=== PATIENT | male | born 2005 | race Hispanic/Latino ===

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

== ENCOUNTER 2025-07-12 18:31 | Emergency (ER) | payer SELFPAY ==
--- OUTSIDE RECORDS SUMMARY | 2025-07-12 18:34 | XMS REPORT | Continuity of Care Document ---
Author Name Unknown Address [address] [facility] [address] [address] [place] [address] [facility] Address [address] [facility] [address] [place] [address] Care Team Providers Care Manufacturing Project Manager Name Role Phone Adia Ibarra Primary Care Physician [phone] INA COE Attending Clinician Unavailable AGUSTIN JONES Attending Clinician Unavailable AGUSTIN JONES Attending Clinician Unavailable GEO GONZALEZ P.A. Attending Clinician Unavailab MILVIA Oconnell M.D. Attending Clinician Unavailable Problems Condition Name Condition Details Condition Category Status Onset Date Resolution Date Last Treatment Date Treating Clinician Comments Source Pain of right femur Pain of right femur Problem Active [facility] Allergies, Adverse Reactions, Alerts Allergy Name Allergy Type Status Severity Reaction(s) Onset Date Inactive Date Treating Clinician Comments Source NO KNOWN ALLERGIE S Drug Class Active [facility] Social History Social Habit Start Date Stop Date Quantity Comments Source Sexual orientation U [facility] Sex assigned at 2005 00:00:00 2005 00:00:00 [facility] Smoking Status Start Date Stop Date Source Tobacco smoking consumption unknown [facility] Medications Ordered Medication Name Filled Medication Name Start Date Stop Date Current Medication? Ordering Clinician Indication Dosage Frequency Signature (SIG) Comments Components Source fluorescein (FUL-ROMARIO) ophthalmic strip 1 Strip 04-26 23:15: 00 04-26 22:34 :00 No 1{strip } 1 Strip, Right Eye, ONCE, 1 dose, On Thu04/26/24 at 1815, Routine [facility] tetracaine (PONTOCAINE ) 0.5 % ophthalmic drops 1 Drop 04-26 23:15: 00 04-26 22:35 :00 No 1[drp] 1 Drop, Right Eye, ONCE, 1 dose, On Thu04/26/24 at 1815, Routine [facility] erythromyci n 5 mg/gram (0.5 %) ophthalmic ointment 04-26 00:00: 00 05-02 04:59 :00 No [id number] .5[in_u s] Place 0.5 Inches in right eye in the morning and 0.5 Inches in the evening. Do all this for 5 days. Continue until you follow up with eye doctor. [facility] erythromyci n (ILOTYCIN) 5 mg/gram (0.5 %) ophthalmic ointment 0.5 Inch 03-30 09:15: 00 03-30 08:23 :00 No .5[in_u s] 0.5 Inch, Both Eyes, ONCE, 1 dose, On Thu03/30/24 at 0415, Routine [facility] Bromfed DM 2 mg-30 mg-10 mg/5 mL oral syrup 02-10 00:00: 00 Yes 10mg/5 mL Alejandro Hawkins Vital Signs Vital Name Observation Time Observation Value Comments S ource Systolic blood pressure 2024-04-26 22:07:00 110 mm[Hg] [facility] Diastolic blood pressure 2024-04-26 22:07:00 73 mm[Hg] [facility] Heart rate 2024-04-26 22:07:00 102 /min [facility] Body temperature 2024-04-26 22:07:00 37.22 Fern [facility] Respiratory rate 2024-04-26 22:07:00 16 /min [facility] Body height 2024-04-26 22:07:00 172.7 cm [facility] Body weight 2024-04-26 22:07:00 58.968 kg [facility] BMI 2024-04-26 22:07:00 19.77 kg/m2 [facility] Oxygen saturation in Arterial blood by Pulse oximetry 2024-04-26 22:07:00 99 /min [facility] Systolic blood pressure 2024-03-30 07:29:35 112 mm[Hg] [facility] Diastolic blood pressure 2024-03-30 07:29:35 84 mm[Hg] [facility] Heart rate 2024-03-30 07:29:35 71 /min [facility] Body temperature 2024-03-30 07:29:35 36.78 Fern [facility] Respiratory rate 2024-03-30 07:29:35 17 /min [facility] BMI 2024-03-30 07:25:00 20.98 kg/m2 [facility] Body mass index (BMI) [Percentile] Per age and sex 2024-03-30 07:25:00 29.07 % [facility] Oxygen saturation in Arterial blood by Pulse oximetry 2024-03-30 07:25:00 99 /min [facility] Body height 2024-03-30 07:25:00 167.6 cm [facility] Body weight 2024-03-30 07:25:00 58.968 kg [facility] Weight Measured 2024-02-11 16:25:00 150.00 pounds Alejandro Hawkins Height Measured 2024-02-11 16:25:00 66.54 inches Alejandro Mayer [facility] Body Temperature 2024-02-11 16:25:00 97.80 degrees Alejandro Mayer Ross Heart Rate 2024-02-11 16:25:00 77.00 /min Divya en F Ross Respiratory Rate 2024-02-11 16:25:00 18.00 /min Alejandro F Ross BP Systolic 2024-02-11 16:25:00 109 mm[Hg] Step hen F Ross BP Diastolic 2024-02-11 16:25:00 67 mm[Hg] Smooth phen F Ross BP Systolic 2022-12-15 10:45:00 120 mm[Hg] Step hen F Ross BP Diastolic 2022-12-15 10:45:00 80 mm[Hg] Smooth phen F Ross Weight Measured 2022-12-15 10:45:00 145.80 pounds Alejandro Hawkins Height Measured 2022-12-15 10:45:00 66.54 inches Alejandro Hawkins Body Temperature 2022-12-15 10:45:00 98.30 degrees Alejandro F Ross Heart Rate 2022-12-15 10:45:00 79.00 /min Divya en F Ross Respiratory Rate 2022-12-15 10:45:00 Alejandro F Ross BP Systolic 2022-11-03 10:58:00 119 mm[Hg] Step hen F Ross BP Diastolic 2022-11-03 10:58:00 76 mm[Hg] Smooth phen F Ross Weight Measured 2022-11-03 10:58:00 142.60 pounds Alejandro F Ross Height Measured 2022-11-03 10:58:00 66.54 inches Alejandro F Ross Body Temperature 2022-11-03 10:58:00 97.60 degrees Alejandro F Ross Heart Rate 2022-11-03 10:58:00 65.00 /min Divya en F Ross Respiratory Rate 2022-11-03 10:58:00 Alejandro F Ross BP Systolic 2022-10-20 08:22:00 122 mm[Hg] Step hen F Ross BP Diastolic 2022-10-20 08:22:00 76 mm[Hg] Smooth phen F Ross Weight Measured 2022-10-20 08:22:00 141.40 pounds Alejandro F Ross Height Measured 2022-10-20 08:22:00 66.50 inches Alejandro Hawkins Body Temperature 2022-10-20 08:22:00 97.40 degrees Alejandro F Ross Heart Rate 2022-10-20 08:22:00 66.00 /min Divya en F Ross Respiratory Rate 2022-10-20 08:22:00 18.00 /min Alejandro Moreno Hawkins Procedures Procedure Date / Time Performed Performing Clinicia n Source Post Op Promis 29 Survey 2020-07-10 00:00:00 [facility] Start Date/Time End Date/Time Encounter Type Admission Type Attending Clinicians Care Facility Care Department Encounter ID Source 2024-04-26 17:09:00 2024-04-26 18:39:00 Emergency X INA COE ERT [id number] [facility] 2024-04-26 17:09:00 2024-04-26 18:39:00 Ina Henson AT [facility] [id number] [facility] 2024-03-30 02:29:00 2024-03-30 03:25:00 Emergency X AGUSTIN JONES BRENT [facility] ERT [id number] [facility] 2024-03-30 02:29:00 2024-03-30 03:25:00 Emergency Agustin Jones J [facility] [id number]..[id number] [facility] 2024-02-11 16:25:00 2024-02-11 16:25:00 Outpatient [facility] [id number] Alejandro Hawkins 2024-02-11 00:00:00 2024-02-11 00:00:00 Outpatient Visit [facility] [id number] Alejandro Hawkins 2022-12-15 10:38:34 2022-12-15 10:38:34 Outpatient [facility] [id number] Alejandro Hawkins 2022-11-04 09:47:09 2022-11-04 09:47:09 Outpatient [facility] [id number] Alejandro Hawkins 2022-11-03 10:53:54 2022-11-03 10:53:54 Outpatient [facility] [id number] Alejandro Hawkins 2022-10-20 08:14:02 2022-10-20 08:14:02 Outpatient [facility] [id number] Alejandro Hawkins 2020-07-17 07:30:00 2020-07-17 07:30:00 Appointmen t; GEO GONZALEZ PGEO MUSTAFA, PDestiny [facility] Orthopedics [facility] [id number] [facility] 2020-06-21 13:00:00 2020-06-21 13:00:00 Appointmen t; MILVIA MASON M.D. MUNZ, JOHN M.D. [facility] UTP [id number] [facility] Results Test Description Test Time Test Comments Results Result Co mments Source CINDY (ANTI-NUCLEAR AB) WITH REFLEX [id number] 00:00:00* Test Item Value Reference Range Interpretation Comme nts ANTI-NUCLEAR ANTIBODIES (kristina t code = 3506) NEGATIVE CINDY PATTERN (REPORTED TITER) (test code = 56936) SEE BELOW HOMOGENEOUS (test code = 85177) NEGATIVE TITER SPECKLED (test code = 300227) NEGATIVE TITER DENSE FINE SPECKLED (test co de = 47522) NEGATIVE TITER CENTROMERE (test code = 328704) NEGATIVE TITER COARSE SPECKLED (test code = 754835) NEGATIVE TITER DISCRETE NUCLEAR DOTS (test code = 900620) NEGATIVE TITER NUCLEOLAR (test code = 457211) NEGATIVE TITER NUCLEAR MEMBRANE (test code = 725591) NEGATIVE TITER CYTO. RETICULAR (STEW) (test code = 966077) NEGATIVE COMMENTS (test code = 817980) NONE METHOD (test code = 12907) (NOTE) Alejandro Mayer AustinSEDIMENTATION [id number] 06:01:06* Test Item Value Reference Range Interpretation Comme nts SEDIMENTATION RATE (test cod e = 1017) 2 MM/HOUR 0-15 CCP [id number] 05:07:53* Test Item Value Reference Range Interpretation Comme nts CCP IgG (test code = 22162) <0.5 U/ML <3.0 INTERPRETIVE INFORMATION INTERPRETATION RESULT NEGATIVE <3.0 U/ML POSITIVE >=3.0 U/ML CBC W/AUTO DIFF WITH [id number] 04:44:36* Test Item Value Reference Range Interpretation Comme nts WBC (test code = 1001) 3.2 K/UL 3.5-11.0 L RBC (test code = 1002) 5.11 M/UL 4.50-6.10 HEMOGLOBIN (test code = 1003) 15.7 G/DL 13.5-17.0 HEMATOCRIT (test code = 1004) 46.2 % 40.0-51.0 MCV (test code = 1005) 90.4 fL 78.0-95.0 MCH (test code = 1006) 30.7 PG 24.0-33.0 MCHC (test code = 1007) 34.0 G/DL 31.0-36.0 RDW (test code = 1038) 12.9 % 11.5-15.0 NEUTROPHILS (test code = 1008) 53.5 % LYMPHOCYTES (test code = 1010) 32.7 % MONOCYTES (test code = 1011) 8.3 % EOSINOPHILS (test code = 1012) 4.3 % BASOPHILS (test code = 1013) 0.9 % IMMATURE GRANULOCYTES (test code = 1036) 0.3 % NUCLEATED RBCS (test code = 1065) 0.0 /100 WBC'S See_Comment [Automated messa ge] The system which generated this result transmitted reference range: 0.0. The reference range was not used to interpret this result as normal/abnormal. PLATELET COUNT (test code = 1015) 210 K/UL 150-450 ABSOLUTE NEUTROPHILS (test code = 1066) 1.73 K/UL 1.50-7.50 ABSOLUTE LYMPHOCYTES (test code = 1067) 1.06 K/UL 1.20-4.00 L ABSOLUTE MONOCYTES (test code = 1068) 0.27 K/UL 0.10-0.90 ABSOLUTE EOSINOPHILS (test code = 1040) 0.14 K/UL 0.00-0.50 ABSOLUTE BASOPHILS (test code = 1069) 0.03 K/UL 0.00-0.10 ABS IMMATURE GRANULOCYTES (test code = 1020) 0.01 K/UL 0.00-0.10 ABS NUCLEATED RBCS (test code = 86862) 0.00 K/UL 0.00-0.13 URIC [id number] 03:33:52* Test Item Value Reference Range Interpretation Comme nts URIC ACID (test code = 2233) 6.2 MG/DL 3.7-8.0 RHEUMATOID FACTOR, [id number] 03:33:42* Test Item Value Reference Range Interpretation Comme nts RHEUMATOID FACTOR, QUANT (te st code = 3502) <10 IU/ML <14 SEDIMENTATION [id number] 00:00:00* Test Item Value Reference Range Interpretation Comme nts SEDIMENTATION RATE (test cod e = 1017) 2 MM/HOUR Alejandro HawkinsCCP [id number] 00:00:00* Test Item Value Reference Range Interpretation Comme nts CCP IgG (test code = 27175) <0.5 U/ML Alejandro F AustinRHEUMATOID FACTOR, [id number] 00:00:00* Test Item Value Reference Range Interpretation Comme nts RHEUMATOID FACTOR, QUANT (te st code = 3502) <10 IU/ML Alejandro HawkinsCBC W/AUTO [id number] 00:00:00* Test Item Value Reference Range Interpretation Comme nts WBC (test code = 1001) 3.2 K/UL RBC (test code = 1002) 5.11 M/UL HEMOGLOBIN (test code = 1003) 15.7 G/DL HEMATOCRIT (test code = 1004) 46.2 % MCV (test code = 1005) 90.4 fL MCH (test code = 1006) 30.7 PG MCHC (test code = 1007) 34.0 G/DL RDW (test code = 1038) 12.9 % NEUTROPHILS (test code = 1008) 53.5 % LYMPHOCYTES (test code = 1010) 32.7 % MONOCYTES (test code = 1011) 8.3 % EOSINOPHILS (test code = 1012) 4.3 % BASOPHILS (test code = 1013) 0.9 % IMMATURE GRANULOCYTES (test code = 1036) 0.3 % NUCLEATED RBCS (test code = 1065) 0.0 /100WBC'S PLATELET COUNT (test code = 1015) 210 K/UL ABSOLUTE NEUTROPHILS (test c ode = 1066) 1.73 K/UL ABSOLUTE LYMPHOCYTES (test c ode = 1067) 1.06 K/UL ABSOLUTE MONOCYTES (test cod e = 1068) 0.27 K/UL ABSOLUTE EOSINOPHILS (test c ode = 1040) 0.14 K/UL ABSOLUTE BASOPHILS (test cod e = 1069) 0.03 K/UL ABS IMMATURE GRANULOCYTES (t est code = 1020) 0.01 K/UL ABS NUCLEATED RBCS (test cod e = 31628) 0.00 K/UL Alejandro HawkinsURIC [id number] 00:00:00* Test Item Value Reference Range Interpretation Comme nts URIC ACID (test code = 2233) 6.2 MG/DL Alejandro Hawkins[U] XRAY FEMUR 2 VWS RIGHT [id number] 07:41:00Images acquired, not reported on this accession number.[facility] Date/Time Note Provider Source 2024-04-26 18:38:41 Patient left prior to getting discharge instructions. Carmen Constantino RN [facility] 2024-04-26 17:07:59 CC: patient presents to the ER with complaints of left eye pain that began Thursday night. 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 States he had a piece of metal in his eye a few weeks ago and was treated in this ER. Awake, alert, oriented, resp reg unlabored, skin warm and dry, color appropriate for race, moves all ext without difficulty, amb without assistance. Appears in no distress. Margaret Hawk RN [facility] 2024-03-30 03:25:44 Pt given printed and verbal discharge instructions regarding foreign body to eye. Encouraged hydration, Prescriptions provided:erythromycin Discussed ibuprofen and to take with food to avoid GI distress. Discussed antibiotic therapy and to take until all completed unless adverse reaction occurs - if occurs, discontinue medication and follow up with pcp/seek medical attention Pt verbalized understanding of instructions, pt awake alert oriented, resp reg unlabored, skin w/d, color appropriate for race, moves all ext well,pt encouraged to follow up with pcp. Advised to seek medical attention for new/prolonged/worsening of symptoms, Symptoms improved No adverse reaction to meds given in ER noted upon discharge Awake, alert oriented, resp reg unlabored, skin w/d, pt leaving amb with steady gait, in no apparent distress, accompanied by friend. T Halley Kaplan RN [facility] 2024-03-30 02:58:56 Dr. Jones at bedside attempting to remove foreign body from eye. T [facility] 2024-03-30 02:24:13 Pt arrived ambulatory C/o metal shaving in right eye after using a outer diameter grinder around 6pm last night. He flushed it with water but it is irritating him [facility] 2024-03-30 02:21:00 [facility] Emergency Department Note Patient Name: Leanne Brooks Date of : 2005 18 year old male Treatment Room: [place] [address] Primary Care Physician: PATIENT DOES NOT HAVE A PCP Patient Escorted by: Family [5] Mode of Arrival: Personal means [1] EMS Treatment Prior to ED Arrival: SURGICAL CODER treatment: None Travel and Exposure Screening: Symptoms Does patient have any of these symptoms?: (not recorded) Exposure Screening Has patient had contact with someone with a communicable disease in the last month?: (not recorded) Diseases exposed to:: (not recorded) Is Patient ?: (not recorded) Exposure Date: (not recorded) Chief Complaint: Chief Complaint Patient presents with Foreign Body In Eye History of Present Illness: 18 y.o. male with c/o metal f.b. in right eye from grinding metal without glasses earlier today. Patient reports persistent irritation and tearing of eye. Past Medical History/Immunizations: No past medical history on file. Tetanus received in last 5 years: No Childhood immunizations: Up-to-date Allergies: No Known Allergies Past Social History: Substance & Sexual Activity No substance use or sexual activity history on file. Past Surgical History: No past surgical history on file. Review of Systems: Review of Systems Constitutional: Negative. HENT: Negative. Eyes: Positive for discharge and redness. Respiratory: Negative. Breasts: Negative. Physical Exam: ED Triage Vitals [03/30/24 0225] Weight 59 kg (130 lb) Actual or estimated Actual Height 1.676 m (5' 6") BP 112/84 Pulse 71 Resp 17 Temp 36.8 ?C (98.2 ?F) Temp source Oral SpO2 99 % Measured on Room air Physical Exam Eyes: Comments: Right eye--small metallic f.b. noted at 3 O'clock. Cardiovascular: Rate and Rhythm: Normal rate. Pulses: Normal pulses. Radiology: No orders to display Lab Results: Lab Results - No data to display EKG: If EKG completed, see Procedure Note. Orders and Treatments: No orders of the defined types were placed in this encounter. No orders of the defined types were placed in this encounter. First Provider Eval: ED Events Date/Time Event User Comments 03/30/24229 Medical Screening Begins AGUSTIN JONES MD -- 03/30/24229 First Provider Evaluation AGUSTIN JONES MD -- ED COURSE After Tetracaine to right eye--unable to remove metallic f.b. with q-tip. Then f.b. removed easily with 22 gauge needle. Patient tolerated well. Complication-none Procedures: Procedures MDM: Medical Decision Making A) Metallic Foreign Body-OD, removed. Disposition/Condition: Home, Erythromycin ointment, f/u Eye clinic in 1-2 days. Strict Er warnings provided. ED Disposition None Discharge Medications: Patient's Medications No medications on file Follow-up: Ophtho Clinic in 1-2 days. Electronically signed by: Agustin Jones MD 03/30/24 0323 [facility]
--- NOTE | 2025-07-12 20:15 | ER ---
Nurse's Notes [facility] Name: Jitendra Kenny Jr Age: 20 yrs Sex: Male : 2005 Arrival Date: 07/12/2025 Time: 18:31 Bed 11 Private MD: Diagnosis: Acute pharyngitis, unspecified Presentation: 07/12 18:51 Chief complaint: Patient states: CANKER SORES TO LOWER GUMS AND INSIDE LOWER RT LIP, dd2 ROOF OF MOUTH X 1 WEEK. PT REPORTS HE HAS HAD THESE IN THE PAST. Coronavirus screen: At this time, the client does not indicate any symptoms associated with coronavirus-19. Ebola Screen: No symptoms or risks identified at this time. Initial Sepsis Screen: Does the patient meet any 2 criteria? No. Patient's initial sepsis screen is negative. Does the patient have a suspected source of infection? No. Patient's initial sepsis screen is negative. Risk Assessment: Do you want to hurt yourself or someone else? Patient reports no desire to harm self or others. Onset of symptoms was July 05, 2025. 18:51 Method Of Arrival: Ambulatory dd2 18:51 Acuity: TOD 4 dd2 Triage Assessment: 18:53 General: Appears in no apparent distress. uncomfortable, Behavior is calm, cooperative, dd2 appropriate for age. Pain: Complains of pain in gums, hard palate and lower lip. Derm: ULCERS TO INSIDE BOTTOM LIP, HARD PALETTE AMD BOTTOM GUM. Historical: - Allergies: 18:53 No Known Allergies; dd2 - PMHx: 18:53 None; dd2 - PSHx: 18:53 R femur SX; dd2 - Social history:: Smoking status: Reported history of juuling and/or vaping. Screenin:[address] [facility] ED Fall Risk Assessment (Adult) History of falling in the last 3 months, jb4 including since admission No falls in past 3 months (0 pts) Confusion or Disorientation No (0 pts) Intoxicated or Sedated No (0 pts) Impaired Gait No (0 pts) Mobility Assist Device Used No (0 pt) Altered Elimination No (0 pt) Score/Fall Risk Level 0 - 2 = Low Risk Oriented to surroundings, Maintained a safe environment. Abuse screen: Denies threats or abuse. Nutritional screening: No deficits noted. Tuberculosis screening: No symptoms or risk factors identified. Assessment: 19:40 Reassessment: Went to swab pt for strep, pt noted to be gone. jb4 Vital Signs: 18:51 BP 147 / 97; Pulse 97; Resp 16; Temp 98.5; Pulse Ox 100% ; Weight 63.5 kg; Pain 4/10; dd2 18:51 Pain Scale: Adult dd2 ED Course: 18:33 Patient arrived in ED. mr 18:33 Mc Madison PA-C [facility]. cp 18:33 Mc Cadet MD is Attending Physician. cp 18:50 Nadeen Umana, RN is Primary Nurse. cc6 18:53 Triage completed. dd2 18:53 Arm band placed on right wrist. dd2 19:15 Jeremy Cantu, RN is Primary Nurse. jb4 19:15 Patient has correct armband on for positive identification. Bed in low position. Call jb4 light in reach. Side rails up X 1. Provided Education on:. 19:15 No provider procedures requiring assistance completed. Patient did not have IV access jb4 during this emergency room visit. Administered Medications: No medications were administered Medication: 19:41 VIS not applicable for this client. jb4 Outcome: 19:15 Eloped from patient exam room, after seeing physician Time discovered patient gone: jb4 July 12, 2025 at 19:41 20:14 Discharge ordered by . cp 20:16 Patient left the ED. jb4 Signatures: HawkTiffany chambers, Reg Reg Mc Madison PA-C PA-C cp Bryson, James, RN RN jb4 Nadeen Umana, DANIEL SANCHEZ cc6 CHUN BEARD RN RN dd2
--- NOTE | 2025-07-12 20:15 | EDPHYS ---
Physician Documentation [facility] Name: Jitendra Kenny Jr Age: 20 yrs Sex: Male : 2005 Arrival Date: 07/12/2025 Time: 18:31 Bed 11 Private MD: ED Physician Mc Cadet HPI: 07/12 19:05 This 20 yrs old Male presents to ER via Ambulatory with complaints of Mouth cp Problem. 19:05 The patient presents with pain, redness, ulceration. The problem is located in the oral cp pharynx. 19:05 Onset: The symptoms/episode began/occurred 1 week(s) ago. cp 19:05 Duration: The symptoms are intermittent. Associated signs and symptoms: Pertinent cp negatives: anorexia, dysphagia, fever, nausea, vomiting. Severity of symptoms: in the emergency department the symptoms are unchanged, despite home interventions. Historical: - Allergies: 18:53 No Known Allergies; dd2 - PMHx: 18:53 None; dd2 - PSHx: 18:53 R femur SX; dd2 - Social history:: Smoking status: Reported history of juuling and/or vaping. ROS: 19:10 Constitutional: Negative for body aches, chills, fever, poor PO intake, cp 19:10 ENT: Positive for sore throat, Negative for drainage from ear(s), ear pain, difficulty cp swallowing, difficulty handling secretions, 19:10 Respiratory: Negative for cough, shortness of breath, wheezing, 19:10 Abdomen/GI: Negative for abdominal pain, nausea, vomiting, and diarrhea, 19:10 Skin: Negative for cellulitis, rash, 19:10 Neuro: Negative for altered mental status, headache, weakness, 19:10 All other systems are negative, Exam: 19:15 Constitutional: The patient appears in no acute distress, alert, awake, non-toxic, well cp developed, well nourished, 19:15 Head/Face: Normocephalic, atraumatic. cp 19:15 Eyes: Periorbital structures: appear normal, Conjunctiva: normal, no exudate, no injection, Sclera: no appreciated abnormality, Lids and lashes: appear normal, bilaterally, 19:15 ENT: External ear(s): are unremarkable, Ear canal(s): are normal, clear, TM's: dullness, bilaterally, Nose: is normal, Mouth: Lips: moist, Oral mucosa: moist, left inner buccal mucosal ulcer, Posterior pharynx: Airway: no evidence of obstruction, patent, Tonsils: with erythema, no exudate, erythema, that is moderate, Voice: is normal, 19:15 Chest/axilla: Inspection: normal, Palpation: crepitus, is not appreciated, tenderness, is not appreciated, 19:15 Cardiovascular: Rate: normal, Rhythm: regular, 19:15 Respiratory: the patient does not display signs of respiratory distress, Respirations: normal, no use of accessory muscles, no retractions, labored breathing, is not present, Breath sounds: are clear throughout, no decreased breath sounds, no stridor, no wheezing, 19:15 Abdomen/GI: Exam negative for discomfort, distension, guarding, Inspection: abdomen appears normal, 19:15 Skin: no rash present. Vital Signs: 18:51 BP 147 / 97; Pulse 97; Resp 16; Temp 98.5; Pulse Ox 100% ; Weight 63.5 kg; Pain 4/10; dd2 18:51 Pain Scale: Adult dd2 MDM: 18:47 Medical Screening Exam initiated cp 20:14 Data reviewed: vital signs, nurses notes, and as a result, I will discharge patient. cp 20:14 Differential diagnosis: aphthous ulcers, strep throat, tonsillitis. ED course: Patient cp left ED prior to strep testing and reevaluation/discussion. Administered Medications: No medications were administered Disposition Summary: 07/12/25 20:14 Discharge Ordered Notes: Location: Home cp Problem: new cp Symptoms: are unchanged cp Condition: Stable cp Diagnosis - Acute pharyngitis, unspecified cp Followup: cp - With: Private Physician - When: 2 - 3 days - Reason: Worsening of condition Discharge Instructions: - Discharge Summary Sheet cp - Pharyngitis cp - Sore Throat cp Forms: - Medication Reconciliation Form cp - Antibiotic Education cp - Prescription Opioid Use cp - Patient Portal Instructions cp - Leadership Thank You Letter cp Addendum: 07/15/2025 07:25 Co-signature as Attending Physician, Mc Cadet MD I agree with the assessment and c bowman plan of care. Signatures: Dispatcher [employer] EDTN Mc Cadet MD MD cha Page, Corey, PA-C PA-C CHUN Esquivel, RN RN dd2
[2025-07-12 20:26] VITALS: BP 147/97; TEMP 98.5; O2SAT 100
== END 2025-07-12 20:16 | disposition home or self-care (01) ==
LOC: ER 18:31
DX: J02.9 Acute pharyngitis, unspecified (principal)
CPT/HCPCS: 99281